=== PATIENT | male | born 2000 | race Caucasian/White ===

== ENCOUNTER 2021-02-25 20:53 | Emergency (ER) | payer OTHER, SELFPAY ==
[2021-02-25 20:55] VITALS: BP 143/80; PULSE 108; RESP 16; TEMP 36.6; O2SAT 97; BMI 36.9
--- NOTE | 2021-02-25 22:36 | EX.ED.DYSGE1 ---
HPI History of Present Illness Chief Complaint: General Illness PFSH PFSH Allergy/AdvReac Type Severity Reaction Status Date / Time No Known Allergies Allergy Verified 02/25/21 20:55 EXAM Physical Exam Const Vital Signs: 02/25/21 20:55 Temperature 97.8 F Temperature Source Temporal Pulse Rate 108 H Respiratory Rate 16 Blood Pressure 143/80 H Blood Pressure Mean 101 Pulse Ox 97 Oxygen Delivery Method Room Air Discharge Plan Triage Chief Complaint: General Illness ED Provider: Hadley Ferris Dx/Rx/DC Orders Clinical Impression: Mononucleosis Instructions: ED Mononucleosis, Dexamethasone Oral tablet Stand Alone Forms: ED Work / School Excuse Primary Care Provider: [place] Doctor,Out of Referrals: [facility] Doctor,Out of [Primary Care Provider] - As Needed Disposition Disposition: Home, Self Care
[2021-02-25] MEDS: dexAMETHasone 4 MG Tablet 12 MG PO (22:47)
[2021-02-25] MEDS: Ketorolac 60 MG/2 ML Vial IM (22:47)
--- NOTE | 2021-02-26 00:22 | EX.ED.DYSGE1 ---
HPI History of Present Illness Chief Complaint: General Illness Detail of Chief Complaint: sore throat, fatigue Informant: patient Onset/Context/Timing Onset: Days (4) Context: Gradual Onset Timing: Continuous Quality: sore, swollen Location: throat Current Severity: Severe Maximum Severity: Severe Worsened by: swallowing Relieved by: nothing Associated Symptoms Associated Symptoms: fatigue Narrative Narrative: Patient presenting with sore throat and fatigue, some sore lymph nodes in his neck. This started about 4 days ago, a day after he started having his symptoms seen with the urgent care and tested negative for strep and positive for mononucleosis with the blood test they performed here. He states now his throat hurts worse and is more swollen and he cannot swallow. He denies any other systemic symptoms other than fatigue. They did not test him for Covid. He was not vaccinated, and has noted no known contact with Covid patients that he knows of. PFSH PFSH no medical history Allergy/AdvReac Type Severity Reaction Status Date / Time No Known Allergies Allergy Verified 02/25/21 20:55 Social History Smoking Status: Never smoker ROS ROS ED Constitutional Constitutional ED: Reports fatigue; Denies chills or fever(s) Eyes Eyes: Denies change in vision or diplopia ENT ENT ED: Reports sore throat and throat swelling; Denies loss taste/smell or rhinorrhea Cardiovascular Cardiovascular: Denies chest pain or palpitations Respiratory/Chest Respiratory/Chest: Denies cough or dyspnea Gastrointestinal Gastrointestinal: Denies abdominal pain, diarrhea, nausea or vomiting Genitourinary Genitourinary ED: Denies dysuria or hematuria Musculoskeletal Musculoskeletal: Denies back pain or neck pain Integumentary Denies abscess or rash Neurologic Neurologic: Denies headache(s), paresthesias or weakness Psychiatric Psychiatric: Denies anxiety or suicidal thoughts Hematologic/Lymphatic Hematologic/Lymphatic: Reports lymphadenopathy; Denies easy bleeding or easy bruising EXAM Physical Exam Const Vital Signs: 02/25/21 20:55 02/25/21 22:49 Temperature 97.8 F Temperature Source Temporal Pulse Rate 108 H Respiratory Rate 16 Respiratory Effort Normal Non-Labored Respiratory Pattern Normal Blood Pressure 143/80 H Blood Pressure Mean 101 Pulse Ox 97 Oxygen Delivery Method Room Air Positive well nourished and well developed General Appearance ED: well developed and NAD HEENT Reports moist mucous membranes normocephalic and atraumatic Throat: uvula midline, tonsils abnormal bilateral erythema and exudates (Symmetric without abscess) and other Other Details: Hot potato voice without stridor. No trismus. Eyes PERRL and EOMs intact bilaterally Neck full ROM and supple Neck Narrative: Patient has posterior cervical lymphadenopathy as well as right periauricular and right submandibular Resp normal respiratory effort and clear to auscultation bilaterally Cardio regular rate, regular rhythm and no murmurs GI non-tender and non-distended Auscultation: normoactive bowel sounds Palpation: soft Back/Spine no CVA tenderness General Back: other FROM Extremity normal to inspection General Extremety ED: Negative for edema, pulses abnormal or tenderness General Extremity: Negative for edema or pulses abnormal Neuro oriented x3, CN's II-XII intact bilaterally and no sensory deficits noted Sensorium / Orientation: awake and alert Motor Exam: strength 5/5 throughout Skin no rashes or lesions noted and no wounds MDM MDM MDM Narrative Medical decision making narrative: Consistent with mononucleosis clinically, as well as strep given the patient's testing that he had at urgent care which I am not able to look up since they are not in our healthcare system, I will give him Decadron. He was also given a dose of Toradol here. I suspect both of these will help. And he can self hydrate he does not require IV fluids. He was offered a Covid test but he declines. Discharge Plan Triage Chief Complaint: General Illness ED Provider: Hadley Ferris Dx/Rx/DC Orders Clinical Impression: Mononucleosis Instructions: ED Mononucleosis, Dexamethasone Oral tablet Stand Alone Forms: ED Work / School Excuse Primary Care Provider: Care Physician,No Primary Referrals: [facility] Doctor,Out of [NON-STAFF] - As Needed Disposition Disposition: Home, Self Care Discharge Date/Time: 02/25/21 23:38
== END 2021-02-25 23:38 | disposition home or self-care (01) ==
LOC: ED 23:21
PROVIDERS: Emergency Provider Emergency Medicine
DX: B27.90 Infectious mononucleosis, unspecified without complication (principal)
CPT/HCPCS: 96372; 99283

== ENCOUNTER 2022-06-08 23:03 | Emergency (ER) | payer OTHER, SELFPAY ==
[2022-06-08 23:04] VITALS: BP 143/84; PULSE 82; RESP 16; TEMP 36.2; O2SAT 100; BMI 35.9
[2022-06-09 00:11] VITALS: BP 127/78
[2022-06-09 00:59] LABS: Absolute Lymphocyte Count 2.12 X10^3/uL (0.83-4.51); Absolute Neutrophil Count 9.8 X10^3/uL (2.0-7.7); Basophil# 0.06 X10^3/uL; Basophil% 0.5 % (0-1); Eosinophil# 0.12 X10^3/uL; Eosinophils% 0.9 % (0-5); Hematocrit 42.8 % (40-54); Hemoglobin 14.4 g/dL (13.0-16.5); Lymphocyte # 2.12 X10^3/ul (0.83-4.51); Lymphocyte % 16.3 % (19-41); Mean Corp Hgb Conc 33.6 g/dL (32-36); Mean Corpuscular Volume 86.1 fL (80-94); Mean Platelet Vol. 10.6 fl (6.2-12.0); Monocyte# 0.83 X10^3/uL; Monocyte% 6.4 % (0-10); NRBC Flagged by Analyzer 0 % (0-5); Neutrophil # 9.79 X10^3/uL (2.7-7.7); Neutrophil % 75.4 % (47-70); Platelet Count 251 K/mm3 (150-450); RBC Distribution Width CV 12.4 % (11.6-14.6); RBC Distribution Width SD 38.8 fl (35.1-43.9); Red Blood Count 4.97 M/mm3 (4.6-6.2)
--- NOTE | 2022-06-09 01:02 | EDS_ITS ---
HPI History of Present Illness Chief Complaint: Dizziness Informant: patient Narrative Narrative: Patient is a 21-year-old male no significant past medical history presenting from home after episode of lightheadedness, headache and vomiting. He states he just felt a little off when he woke up this morning. Around 1 AM he had gradual onset of headache. Described more as a pressure behind his eyes on the top of his head. It worsened around 6 PM but has since started to improve. He notes that he started feel lightheaded with every time he would stand and had 2 episodes of pretty forceful vomiting. He also had significant dry heaving. He did vomit up a small amount of streaks of blood. Denies any abdominal pain. Denies any change in his bowel habits. Denies any significant URI symptoms or urinary symptoms. Denies any myalgias. No other complaints at this time. PFSH PFSH Home Medications ondansetron 4 mg disintegrating tablet 4 mg PO Q6H PRN nausea and vomiting #20 tabs 06/09/22 [Rx Last Taken Unknown] Allergy/AdvReac Type Severity Reaction Status Date / Time No Known Allergies Allergy Verified 06/08/22 23:06 Social History Smoking Status: Never smoker ROS ROS ED Constitutional Constitutional ED: Denies chills or fever(s) Eyes Eyes: Denies change in vision ENT ENT ED: Denies rhinorrhea or sore throat Cardiovascular Cardiovascular: Denies chest pain or palpitations Respiratory/Chest Respiratory/Chest: Denies cough or dyspnea Gastrointestinal Gastrointestinal: Reports nausea and vomiting; Denies abdominal pain, constipation, diarrhea or melena Genitourinary Genitourinary ED: Denies dysuria or hematuria Musculoskeletal Musculoskeletal: Denies arthralgias or myalgias Integumentary Denies rash Neurologic Neurologic: Reports headache(s); Denies paresthesias or weakness Psychiatric Psychiatric: Denies anxiety Hematologic/Lymphatic Hematologic/Lymphatic: Denies easy bleeding or easy bruising EXAM Physical Exam Const Vital Signs: 06/08/22 23:04 06/08/22 23:37 06/09/22 00:11 Temperature 97.1 F L Temperature Source Temporal Pulse Rate 82 Pulse Rate [Lying] Pulse Rate [Sitting (for 1 minute prior to obtaining)] Pulse Rate [Standing (for 1 minute prior to obtaining)] Respiratory Rate 16 Respiratory Effort Normal Respiratory Pattern Normal Blood Pressure 143/84 H 127/78 H Blood Pressure [Lying] Blood Pressure [Sitting (for 1 minute prior to obtaining)] Blood Pressure [Standing (for 1 minute prior to obtaining)] Blood Pressure Mean 103 94 Blood Pressure Mean [Lying] Blood Pressure Mean [Sitting (for 1 minute prior to obtaining)] Blood Pressure Mean [Standing (for 1 minute prior to obtaining)] Pulse Ox 100 Oxygen Delivery Method Room Air 06/09/22 01:03 Temperature Temperature Source Pulse Rate Pulse Rate [Lying] 91 Pulse Rate [Sitting (for 1 minute prior to obtaining)] 73 Pulse Rate [Standing (for 1 minute prior to obtaining)] 77 Respiratory Rate Respiratory Effort Respiratory Pattern Blood Pressure Blood Pressure [Lying] 137/80 H Blood Pressure [Sitting (for 1 minute prior to obtaining)] 142/82 H Blood Pressure [Standing (for 1 minute prior to obtaining)] 137/95 H Blood Pressure Mean Blood Pressure Mean [Lying] 99 Blood Pressure Mean [Sitting (for 1 minute prior to obtaining)] 102 Blood Pressure Mean [Standing (for 1 minute prior to obtaining)] 109 Pulse Ox Oxygen Delivery Method Positive well nourished and well developed General Appearance ED: well developed and NAD HEENT Reports TM's clear and moist mucous membranes Tympanic Membrane ED: Yes TM's clear Eyes PERRL and EOMs intact bilaterally Eyes Narrative: periorbital petechia present. No subconjunctival hemorrhage appreciated. Neck supple Neck Narrative: No meningeal signs Chest Wall inspection of chest normal and palpation of chest normal Resp normal respiratory effort and clear to auscultation bilaterally Cardio regular rate, regular rhythm and no murmurs GI normal to inspection, nondistended, normoactive bowel sounds and non-tender Palpation: soft; Negative for guarding Back/Spine no CVA tenderness Extremity normal to inspection Neuro oriented x3 Sensorium / Orientation: alert Motor Exam: Negative for general weakness Psych mental status grossly normal Skin no rashes or lesions noted and no wounds MDM MDM MDM Narrative Medical decision making narrative: Patient is evaluated after episodes of retching with small amount of blood in his vomit as well as headache and generalized malaise today. On exam patient peers nontoxic no acute distress. Vital signs are largely normal. Patient does have some petechiae to his face consistent with vomiting. His platelets are normal as well as his hemoglobin. Patient does not have any meningeal signs. He has normal neurologic exam. Do not suspect meningitis as a cause of his symptoms based on physical exam. His CBC is mildly elevated 13.0 but this could be reactive. CMP is unremarkable lipase is normal. EKG shows sinus bradycardia but otherwise normal. This interpreted myself. Patient's orthostatics are normal. Patient is given a liter of IV fluid as well as IV Zofran. On repeat evaluation he is feeling better. Patient's abdomen is soft and nontender I do suspect any acute surgical emergencies at this time. At this time I feel the patient be discharged home with bland diet as well as a prescription for Zofran. Patient and significant other agreeable this plan of care. Patient counseled return precautions. Discharged home in stable and improved condition. Lab Data Attestation: I reviewed the patient's lab results. Labs: Laboratory Results - last 24 hr 06/08/22 06/08/22 23:49 23:49 WBC 13.0 H RBC 4.97 Hgb 14.4 Hct 42.8 MCV 86.1 MCH 29.0 MCHC 33.6 RDW Std Deviation 38.8 RDW Coeff of Gage 12.4 Plt Count 251 MPV 10.6 Immature Gran % (Auto) 0.500 Neut % (Auto) 75.4 H Lymph % (Auto) 16.3 L [place] % (Auto) 6.4 Eos % (Auto) 0.9 Baso % (Auto) 0.5 Absolute Neuts (auto) 9.8 H Absolute Lymphs (auto) 2.12 Nucleated RBC % 0 Sodium 140 Potassium 4.2 Chloride 108 H Carbon Dioxide 27.0 Anion Gap 5 BUN 14 Creatinine 0.91 Estim Creat Clear Calc 149.29 Est GFR (MDRD) Af Amer 134 Est GFR (MDRD) Non-Af 111 BUN/Creatinine Ratio 15.4 Glucose 104 Calcium 9.1 Total Bilirubin 0.40 AST 15 ALT 30 Alkaline Phosphatase 78 Total Protein 7.2 Albumin 4.0 Globulin 3.2 Albumin/Globulin Ratio 1.2 Lipase 123 Rhythm Strip Rhythm Strip: Sinus Rhythm Rate: 77 Ectopy: None EKG Initial EKG: Attestation: I personally reviewed and interpreted this EKG as follows: Interpretation: Sinus Bradycardia Comments: Sinus bradycardia rate of 53 bpm Normal axis Normal intervals Normal ST segments Discharge Plan Triage Chief Complaint: Dizziness ED Provider: Godman,Evon Dx/Rx/DC Orders Clinical Impression: Vomiting, Headache, Light-headed Instructions: ED Dizziness, Uncertain Cause, ED Vomiting (Adult) Prescriptions: New ondansetron 4 mg tablet,disintegrating 4 mg PO Q6H PRN (Reason: nausea and vomiting) Qty: 20 0RF Primary Care Provider: Care Physician,No Primary Referrals: Yancy Love DO [Med Staff - [employer]] - 3-5 Days if not improving Care Physician,No Primary [Primary Care Provider] - Activity Restrictions/Additional Instructions: Return to the ER if you have worsening symptoms. Otherwise eat a bland diet and drink lots of fluids. Please follow-up with a primary care doctor. Disposition Disposition: Home, Self Care
[2022-06-09 01:03] VITALS: BP 137/80; BP 137/95; BP 142/82; PULSE 73; PULSE 77; PULSE 91
[2022-06-09] MEDS: Ondansetron 4 MG/2 ML Vial IV (01:11)
[2022-06-09] MEDS: 0.9% Normal Saline 1,000 ML 1000 ML IV (01:11)
[2022-06-09 01:27] LABS: ALB/GLOB Ratio 1.2 RATIO (0.9-2.4); AST(SGOT) 15 U/L (15-37); Alanine Aminotransfer ALT/SGPT 30 U/L (16-61); Alkaline Phosphatase 78 U/L (45-117); Anion Gap 5 (5-15); BUN 14 mg/dL (7-18); BUN/Creat Ratio 15.4 RATIO (10-20); Calcium,Total 9.1 mg/dL (8.5-10.1); Chloride 108 mmol/L (98-107); Creatinine, Serum 0.91 mg/dL (0.70-1.30); EST Glomerular Filtration Rate 111 mL/min (>60); Est Glom Filt Rate - Afr Amer 134 mL/min (>60); Estimated Creatinine Clearance 149.29 ml/min; Globulin 3.2 g/dL (2.2-4.2); Glucose 104 mg/dL (74-106); Lipase 123 U/L (73-393); Potassium 4.2 mmol/L (3.5-5.1); Protein, Total 7.2 g/dL (6.4-8.2); Sodium Level 140 mmol/L (136-145)
[2022-06-09 02:33] VITALS: BP 116/56; PULSE 74; RESP 16; O2SAT 99
== END 2022-06-09 02:34 | disposition home or self-care (01) ==
PROVIDERS: Emergency Provider Emergency Medicine; Visit Provider Emergency Medicine
DX: R11.10 Vomiting, unspecified (principal); R51.9 Headache, unspecified; R42 Dizziness and giddiness
CPT/HCPCS: 80053; 83690; 85025; 87428; 93005; 96361; 96374; 99284; J7030; A4216; J2405

== ENCOUNTER → 2023-11-25 | Outpatient (CLI) | payer OTHER, SELFPAY ==
[2023-11-25 16:27] LABS: Absolute Neutrophil Count 5.6 X10^3/uL (2.0-7.7); Basophil# 0.08 X10^3/uL; Basophil% 0.8 % (0-1); Eosinophil# 0.19 X10^3/uL; Hematocrit 40.1 % (40-54); Hemoglobin 13.8 g/dL (13.0-16.5); Lymphocyte % 30.2 % (19-41); Mean Corp Hgb Conc 34.4 g/dL (32-36); Mean Corpuscular Hgb 29.2 pg (27.0-32.0); Mean Platelet Vol. 9.8 fl (6.2-12.0); Monocyte# 0.67 X10^3/uL; NRBC Flagged by Analyzer 0 % (0-5); Neutrophil # 5.63 X10^3/uL (2.7-7.7); Neutrophil % 58.6 % (47-70); Platelet Count 263 K/mm3 (150-450); RBC Distribution Width CV 12.1 % (11.6-14.6); RBC Distribution Width SD 37.1 fl (35.1-43.9); Red Blood Count 4.72 M/mm3 (4.6-6.2); White Blood Count 9.6 K/mm3 (4.4-11.0)
[2023-11-25 16:58] LABS: Hemoglobin A1c 4.7 % (3.8-5.6)
[2023-11-25 17:01] LABS: ALB/GLOB Ratio 1.1 RATIO (0.9-2.4); AST(SGOT) 24 U/L (15-37); Alanine Aminotransfer ALT/SGPT 36 U/L (16-61); Alkaline Phosphatase 85 U/L (45-117); Anion Gap 7 (5-15); BUN 17 mg/dL (7-18); BUN/Creat Ratio 19.6 RATIO (10-20); Calcium,Total 9.4 mg/dL (8.5-10.1); Chloride 106 mmol/L (98-107); Cholesterol 167 mg/dL (200); Creatinine, Serum 0.87 mg/dL (0.70-1.30); EST Glomerular Filtration Rate 116 mL/min (>60); Est Glom Filt Rate - Afr Amer 141 mL/min (>60); Globulin 3.5 g/dL (2.2-4.2); Glucose 88 mg/dL (74-106); High Density Lipoprotein 51 mg/dL; Potassium 3.7 mmol/L (3.5-5.1); Protein, Total 7.5 g/dL (6.4-8.2); Sodium Level 139 mmol/L (136-145); T4 Free Direct 0.96 ng/dL (0.76-1.46); Thyroid Stim Hormone (TSH) 1.74 uIU/mL (0.358-3.74); Triglycerides 80 mg/dL; Very Low Density Lipoprotein 16 mg/dL (5-40)
== END | disposition home or self-care (01) ==
LOC: LAB 15:34
PROVIDERS: PCP Nurse Practitioner Family; Referring Provider Nurse Practitioner Family; Visit Provider Nurse Practitioner Family
DX: Z00.00 Encounter for general adult medical examination without abnormal findings (principal); R73.9 Hyperglycemia, unspecified; E66.9 Obesity, unspecified
CPT/HCPCS: 36415; 80053; 80061; 83036; 84439; 84443; 85025